=== PATIENT | male | born 1940 | race Caucasian/White ===

== ENCOUNTER → 2022-01-13 | Outpatient (CLI) | payer MEDICARE, OTHER ==
[~2022-01-13] MED LIST: ASPI81CH PO; HYDR-86 PO; MONT10T PO; Mobic15 MG PO; PRED10 PO; TAMS.4ER PO; TRAM50 PO
== END ==
LOC: LAB SHORT 12:51
DX: R35.1 Nocturia (principal)
CPT/HCPCS: 87086

== ENCOUNTER 2022-03-17 06:25 | Day surgery (SDC) | payer MEDICARE, OTHER ==
[~2022-03-17] VITALS: Ht 180.3 cm; Wt 89.9 kg
[~2022-03-17 06:25] MED LIST changes: +DOXY100 PO; +FOLI1 PO; +GABA100; +Magnesium30 MG PO
[2022-03-17] MEDS ORDERED: ALENDRONATE SOD35 MG PO (06:45)
[2022-03-17] MEDS ORDERED: ALBU90OI INH (06:45)
[2022-03-17] MEDS ORDERED: GABA100 PO (06:46)
[2022-03-17] MEDS ORDERED: FLUT1DIS5 INH (06:46)
[2022-03-17] MEDS ORDERED: SILD50TA PO (06:47)
--- NOTE | 2022-03-17 07:45 | NUR ---
[facility]. A&O. right radial site soft and nontender. TR band in place. no bleeding, no hematoma. drinking fluids.
--- NOTE | 2022-03-17 10:06 | NUR ---
patient up to rest room.Air removed from TR band. site soft and nontender. no bleeding, no hematoma
--- NOTE | 2022-03-17 10:55 | NUR ---
Patient and daughter verbalized understanding of discharge instructions and precautions. Right radial site soft and nontender, no hematoma, no bleeding. cloth dot dressingplaced to site. arm board placed to right wrist. IV site dced with catheter intact. patient taken via wheelchair to waiting car with daughter driving.
== END 2022-03-17 10:45 | disposition home or self-care (01) ==
LOC: MHTC 06:25
DX: I25.118 Atherosclerotic heart disease of native coronary artery with other forms of angina pectoris (principal); R07.89 Other chest pain; E78.5 Hyperlipidemia, unspecified; J45.909 Unspecified asthma, uncomplicated; G89.29 Other chronic pain; M54.9 Dorsalgia, unspecified; G47.33 Obstructive sleep apnea (adult) (pediatric); I25.2 Old myocardial infarction; Z88.8 Allergy status to other drugs, medicaments and biological substances; Z79.82 Long term (current) use of aspirin
CPT/HCPCS: 76937; 93454; 99152; C1769; C1887; C1894; J1644; J2250; J3010; J7030; Q9967

== ENCOUNTER 2022-06-29 17:25 | Emergency (ER) | payer MEDICARE, OTHER ==
[~2022-06-29] VITALS: Ht 180.3 cm; Wt 91.2 kg
[~2022-06-29 17:25] MED LIST changes: +ALBU90OI INH; +ALENDRONATE SOD35 MG PO; +FLUT1DIS5 INH; +GABA100 PO; +SILD50TA PO
[2022-06-29 18:53] LABS: BASOPHILS ABSOLUTE AUTO 0.06 K/mm3 (0.00-0.23); BASOPHILS PERCENT AUTO 1 % (0-2); EOSINOPHILS ABSOLUTE AUTO 0.44 K/mm3 (0.00-0.68); EOSINOPHILS PERCENT AUTO 4 % (0-6); Hematocrit 45.4 % (37.0-53.0); Hemoglobin 15.1 g/dL (13.5-17.5); IMMATURE GRAN ABSOLUTE AUTO 0.03 K/mm3 (0.00-0.10); IMMATURE GRAN PERCENT AUTO 0 % (0-1); LYMPHOCYTES ABSOLUTE AUTO 2.65 K/mm3 (0.84-5.20); LYMPHOCYTES PERCENT AUTO 25 % (21-46); MONOCYTES ABSOLUTE AUTO 1.28 K/mm3 (0.16-1.47); MONOCYTES PERCENT AUTO 12 % (4-13); Mean Corpuscular HGB 30.1 pg (26.0-34.0); Mean Corpuscular HGB Conc 33.3 g/dL (31.5-36.5); Mean Corpuscular Volume 90 fL (80-100); Mean Platelet Volume 8.8 fL (9.1-12.4); NEUTROPHILS ABSOLUTE AUTO 6.02 K/mm3 (1.96-9.15); NEUTROPHILS PERCENT AUTO 57 % (41-73); Platelet Count 292 K/mm3 (150-400); RDW Coefficient Variation 12.5 % (11.7-14.2); Red Blood Cell Count 5.02 M/mm3 (4.30-5.90); White Blood Cell Count 10.48 K/mm3 (4.00-11.30)
[2022-06-29 19:09] LABS: Albumin, Blood 3.8 g/dL (3.4-5.0); Bilirubin, Total 0.4 mg/dL (0.1-1.0); Bun/Creatinine Ratio 21.4 (12.0-20.0); Calcium, Blood 9.2 mg/dL (8.5-10.1); Creatinine, Blood 1.12 mg/dL (0.60-1.20); Potassium, Blood 3.9 mmol/L (3.5-5.5); Total Protein, Blood 7.8 g/dL (6.4-8.2)
[2022-06-29] MEDS ORDERED: MELO7.5 PO (21:47)
== END 2022-06-29 21:51 | disposition home or self-care (01) ==
LOC: ER 17:25
PROVIDERS: Physician Assistant
DX: G45.9 Transient cerebral ischemic attack, unspecified (principal); S00.01XA Abrasion of scalp, initial encounter; S20.419A Abrasion of unspecified back wall of thorax, initial encounter; W19.XXXA Unspecified fall, initial encounter; Z87.891 Personal history of nicotine dependence; Z79.899 Other long term (current) drug therapy; Z79.82 Long term (current) use of aspirin
CPT/HCPCS: 70450; 80053; 85025; 93005; 93010; 99285-25; A9270

== ENCOUNTER → 2023-08-12 | Outpatient (CLI) | payer MEDICARE, OTHER ==
[~2023-08-12] MED LIST changes: +MELO7.5 PO
[2023-08-12 12:53] LABS: BASOPHILS ABSOLUTE AUTO 0.05 K/mm3 (0.00-0.23); BASOPHILS PERCENT AUTO 1 % (0-2); EOSINOPHILS ABSOLUTE AUTO 0.35 K/mm3 (0.00-0.68); EOSINOPHILS PERCENT AUTO 3 % (0-6); Hematocrit 47.2 % (37.0-53.0); Hemoglobin 15.2 g/dL (13.5-17.5); IMMATURE GRAN ABSOLUTE AUTO 0.04 K/mm3 (0.00-0.10); IMMATURE GRAN PERCENT AUTO 0 % (0-1); LYMPHOCYTES ABSOLUTE AUTO 0.94 K/mm3 (0.84-5.20); LYMPHOCYTES PERCENT AUTO 9 % (21-46); MONOCYTES ABSOLUTE AUTO 0.98 K/mm3 (0.16-1.47); MONOCYTES PERCENT AUTO 10 % (4-13); Mean Corpuscular HGB 29.7 pg (26.0-34.0); Mean Corpuscular HGB Conc 32.2 g/dL (31.5-36.5); Mean Corpuscular Volume 92 fL (80-100); Mean Platelet Volume 9.7 fL (9.1-12.4); NEUTROPHILS ABSOLUTE AUTO 7.98 K/mm3 (1.96-9.15); NEUTROPHILS PERCENT AUTO 77 % (41-73); Platelet Count 205 K/mm3 (150-400); RDW Coefficient Variation 13.8 % (11.7-14.2); RDW Standard Deviation 46.6 fL (35.1-46.3); Red Blood Cell Count 5.11 M/mm3 (4.30-5.90); White Blood Cell Count 10.34 K/mm3 (4.00-11.30)
[2023-08-12 13:04] LABS: Bilirubin, Total 1.1 mg/dL (0.1-1.0); Bun/Creatinine Ratio 16.4 (12.0-20.0); Calcium, Blood 9.3 mg/dL (8.5-10.1); Creatinine, Blood 1.34 mg/dL (0.60-1.20); Globulin, Blood 4.1 g/dL (2.2-4.0); Potassium, Blood 4.2 mmol/L (3.5-5.5); Total Protein, Blood 8.1 g/dL (6.4-8.2)
== END ==
LOC: LAB SHORT 12:48 → LAB 12:48
PROVIDERS: Physician Assistant
DX: R06.00 Dyspnea, unspecified (principal)
CPT/HCPCS: 80053; 83880; 84484; 85025